=== PATIENT | male | born 1975 | race Caucasian/White ===

== ENCOUNTER 2018-03-30 10:51 | Emergency (ER) | payer OTHER ==
[2018-03-30] MEDS ORDERED: DEXAMETHASONE 10 MG/ML VIAL ONE (11:41)
[2018-03-30] MEDS ORDERED: DIAZEPAM 5 MG TABLET ONE (11:41)
[2018-03-30] MEDS ORDERED: FENTANYL CITR 100 MCG/2 ML ONE (11:42)
[2018-03-30] MEDS ORDERED: KETOROLAC 30 MG/ML INJ ONE (11:42)
[2018-03-30] MEDS ORDERED: ONDANSETRON 4 MG/2 ML VIAL ONE (11:42)
[2018-03-30 12:06] LABS: Absolute Lymphocytes (CBC) 1.4 K/uL (0.7-4.9); Absolute Monocytes 0.5 K/uL (0.1-1.3); Absolute Neutrophil 7.5 K/uL (1.8-8.0); Basophils % 0.9 % (0-1.3); Eosinophils % 2.4 % (0-4.4); Hematocrit 46.7 % (39.6-49.0); MCH 30.5 pg (27.0-35.0); MPV 7.4 fL (7.6-11.3); Monocytes % 5.3 % (3.3-12.3); RBC Red Blood Cell Count 5.08 M/uL (4.33-5.43)
[2018-03-30 12:15] LABS: Potassium 3.9 mEq/L (3.6-5.0)
[2018-03-30 12:18] LABS: Albumin 4.3 g/dL (3.2-5.5); Bilirubin Total 0.5 mg/dL (0.3-1.2); Protein, Total 7.7 g/dL (6.0-8.3)
--- NOTE | 2018-03-30 12:53 | RAD REPORT ---
EXAM DESCRIPTION: CT - Spine Lumbar Wo Con - 03/30/2018 12:27 pm CLINICAL HISTORY: Severe back pain, history of colon cancer COMPARISON: None. TECHNIQUE: Thin section axial imaging of the lumbar spine was performed. Sagittal and coronal recon struction images were generated and reviewed. All CT scans are performed using dose optimization technique as appropriate and may include automated exposure control or mA/KV adjustment according to patient size. FINDINGS: Lumbar bodies are normal in height and alignment. No compression fracture changes are pres ent. No lytic, sclerotic or expansile bony destructive process. No paraspinal soft tissue mass or hem atoma. Calcification is present within the T11-12 disc space. This is not seen as an acute or pathologic pro cess. Calcifications of the posterior ligaments noted. Canal is borderline stenotic at 10 mm. Central canal detail is inherently limited. L4-5 disc space narrowing present with endplate spurring and disc bulge within the central canal. Thecal sac is flattened but central canal is not stenotic. N o significant foraminal encroachment. No sacral ala fracture. SI joint degenerative changes are present but without an acute component. IMPRESSION: No compression fracture. No acute or destructive vertebral body process. L4-5 degenerative disc disease with midline disc bulge. This does not cause central spinal stenosis o r significant foraminal encroachment. Central canal detail is inherently limited.
[2018-03-30] MEDS ORDERED: HYDROCODONE/APAP 10/325 TAB ONE (12:58)
--- NOTE | 2018-03-30 13:06 | ER ---
Nurse's Notes [facility] Name: Derick Hough Age: 42 yrs Sex: Male : 1975 Arrival Date: 03/30/2018 Time: 10:55 Bed 26 Private MD: None, None Diagnosis: Low back pain;Sciatica Presentation: 03/30 11:02 Presenting complaint: Patient states: Low back pain 08/11 after doing yard work ss yesterday. Transition of care: patient was not received from another setting of care. Onset of symptoms was March 29, 2018. Care prior to arrival: None. 11:02 Method Of Arrival: Ambulatory ss 11:02 Acuity: BOLA 4 ss 14:38 Risk Assessment: Do you want to hurt yourself or someone else? Patient reports no aj1 desire to harm self or others. Initial Sepsis Screen: Does the patient meet any 2 criteria? No. Patient's initial sepsis screen is negative. Does the patient have a suspected source of infection? No. Patient's initial sepsis screen is negative. Historical: - Allergies: 11:06 No Known Allergies; ss - Home Meds: 11:06 allopurinol 300 mg Oral tab 1 tab once daily [Active]; aspirin 81 mg Oral TbEC 1 tab ss once daily [Active]; Protonix Oral once daily [Active]; tumeric [Active]; - PMHx: 11:06 colon cancer; GERD; Gout; ss - PSHx: 11:06 colon resection; hip; ss - Immunization history:: Adult Immunizations up to date. - Social history:: Smoking status: Patient/guardian denies using tobacco. - Ebola Screening: : No symptoms or risks identified at this time. - Family history:: not pertinent. Screenin:10 Abuse screen: Denies threats or abuse. Denies injuries from another. Nutritional aj1 screening: No deficits noted. Tuberculosis screening: No symptoms or risk factors identified. 14:38 Fall Risk None identified. aj1 Assessment: 11:10 General: Appears in no apparent distress. uncomfortable, Behavior is calm, cooperative, aj1 appropriate for age. Pain: Complains of pain in low back area Pain does not radiate. Pain currently is 10 out of 10 on a pain scale. Neuro: Level of Consciousness is awake, alert, obeys commands, Oriented to person, place, time, situation, Speech is normal, Facial symmetry appears normal. Cardiovascular: Patient's skin is warm and dry. Respiratory: Airway is patent Respiratory effort is even, unlabored, Respiratory pattern is regular, symmetrical. GI: No signs and/or symptoms were reported involving the gastrointestinal system. : No signs and/or symptoms were reported regarding the genitourinary system. EENT: No signs and/or symptoms were reported regarding the EENT system. Derm: No signs and/or symptoms reported regarding the dermatologic system. Skin is pink, warm \T\ dry. normal. Musculoskeletal: Range of motion: intact in all extremities, Reports pain in low back area. 12:03 Reassessment: Patient appears in no apparent distress at this time. No changes from aj1 previously documented assessment. Patient and/or family updated on plan of care and expected duration. Pain level reassessed. Patient is alert, oriented x 3, equal unlabored respirations, skin warm/dry/pink. Patient states that his pain has diminished some, but he is feeling dizzy since administration of Fentanyl. Patient given cool rag for comfort, side rails up x2, call light within reach. Instructed to notify staff if needing to get out of bed. Should not get out of bed without assistance. Patient verbalized understanding. 13:05 Reassessment: Patient appears in no apparent distress at this time. No changes from aj1 previously documented assessment. Patient and/or family updated on plan of care and expected duration. Pain level reassessed. Patient is alert, oriented x 3, equal unlabored respirations, skin warm/dry/pink. 14:05 Reassessment: Patient appears in no apparent distress at this time. Patient and/or aj1 family updated on plan of care and expected duration. Pain level reassessed. Patient is alert, oriented x 3, equal unlabored respirations, skin warm/dry/pink. Patient states feeling better. Patient states symptoms have improved. Vital Signs: 11:05 BP 137 / 96; Pulse 90; Resp 18; Temp 98; Pulse Ox 98% on R/A; Weight 120.2 kg; Height 6 ss ft. 3 in. (190.50 cm); Pain 10/10; 12:02 BP 136 / 85; Pulse 68; Resp 18; Pulse Ox 95% on R/A; aj1 14:37 BP 136 / 89; Pulse 68; Resp 18; Pulse Ox 96% on R/A; aj1 11:05 Body Mass Index 33.12 (120.20 kg, 190.50 cm) ED Course: 10:55 Patient arrived in ED. sb2 10:55 None, None is Private Physician. sb2 11:05 Triage completed. ss 11:06 Arm band placed on right wrist. ss 11:10 Renea Barger, RN is Primary Nurse. aj1 11:10 Patient has correct armband on for positive identification. Bed in low position. Call aj1 light in reach. Side rails up X 1. 11:10 No provider procedures requiring assistance completed. aj1 11:17 Loyd Shannon MD is Attending Physician. anson 11:56 Initial lab(s) drawn, by wv, sent to lab. Inserted saline lock: 20 gauge in right aj1 antecubital area, using aseptic technique. Blood collected. 12:[address] via wheelchair. sw 12:23 CT completed. Patient tolerated procedure well. Patient moved back from CT. sw 12:27 CT Lumbar Spine Wo Con In Process Unspecified. EDMS 13:05 Abimael Blanco MD is Referral Physician. anson 14:37 IV discontinued, intact, bleeding controlled, No redness/swelling at site. Pressure aj1 dressing applied. Administered Medications: 12:01 Drug: Decadron - Dexamethasone 10 mg Route: IVP; Site: right antecubital; aj1 14:39 Follow up: Response: No adverse reaction aj1 12:02 Drug: TORadol 30 mg Route: IVP; Site: right antecubital; aj1 14:38 Follow up: Response: No adverse reaction aj1 12:02 Drug: Valium 5 mg Route: PO; aj1 14:38 Follow up: Response: No adverse reaction aj1 12:02 Drug: fentaNYL (PF) 50 mcg Route: IVP; Site: right antecubital; aj1 14:39 Follow up: Response: No adverse reaction aj1 12:02 Drug: Zofran 4 mg Route: IVP; Site: right antecubital; aj1 14:39 Follow up: Response: No adverse reaction aj1 13:07 Drug: [place] 10 mg-325 mg 1 tabs Route: PO; aj1 14:39 Follow up: Response: No adverse reaction; Pain is decreased aj1 Outcome: 13:06 Discharge ordered by . anson 14:37 Discharged to home via wheelchair. aj1 14:37 Condition: good 14:37 Discharge instructions given to patient, family, Instructed on discharge instructions, follow up and referral plans. no drinking with medication, no driving heavy equipment, medication usage, Demonstrated understanding of instructions, follow-up care, medications, Prescriptions given X 4. 14:39 Patient left the ED. aj1 Signatures: Dispatcher [employer] EDRenea Cardona RN RN aj1 Loyd Shannon MD MD cha Smirch, Shelby, RN RN ss Warren, Shannon sw Billeau, Sheri sb2
--- NOTE | 2018-03-30 13:06 | EDPHYS ---
Physician Documentation [facility] Name: Derick Hough Age: 42 yrs Sex: Male : 1975 Arrival Date: 03/30/2018 Time: 10:55 Bed 26 Private MD: None, None ED Physician Loyd Shannon HPI: 03/30 11:36 This 42 yrs old Male presents to ER via Ambulatory with complaints of Back anson Pain. 11:36 The patient presents with pain that is acute, with no known mechanism of injury. The anson symptoms are located in the low back. Onset: The symptoms/episode began/occurred yesterday. The pain does not radiate. Associated signs and symptoms: The patient has no apparent associated signs or symptoms. The problem was sustained from a chronic condition, when lifting. Modifying factors: The patient symptoms are alleviated by remaining still, the patient symptoms are aggravated by any movement, bending. Severity of symptoms: At their worst the symptoms were moderate, earlier today. Historical: - Allergies: 11:06 No Known Allergies; ss - Home Meds: 11:06 allopurinol 300 mg Oral tab 1 tab once daily [Active]; aspirin 81 mg Oral TbEC 1 tab ss once daily [Active]; Protonix Oral once daily [Active]; tumeric [Active]; - PMHx: 11:06 colon cancer; GERD; Gout; ss - PSHx: 11:06 colon resection; hip; ss - Immunization history:: Adult Immunizations up to date. - Social history:: Smoking status: Patient/guardian denies using tobacco. - Ebola Screening: : No symptoms or risks identified at this time. - Family history:: not pertinent. ROS: 11:36 Constitutional: Negative for fever, chills, and weight loss, Eyes: Negative for injury, anson pain, redness, and discharge, ENT: Negative for injury, pain, and discharge, Neck: Negative for injury, pain, and swelling, Cardiovascular: Negative for chest pain, palpitations, and edema, Respiratory: Negative for shortness of breath, cough, wheezing, and pleuritic chest pain, Abdomen/GI: Negative for abdominal pain, nausea, vomiting, diarrhea, and constipation, : Negative for injury, bleeding, discharge, and swelling, MS/Extremity: Negative for injury and deformity, Skin: Negative for injury, rash, and discoloration, Neuro: Negative for headache, weakness, numbness, tingling, and seizure, Psych: Negative for depression, anxiety, suicide ideation, homicidal ideation, and hallucinations, Allergy/Immunology: Negative for hives, rash, and allergies, Endocrine: Negative for neck swelling, polydipsia, polyuria, polyphagia, and marked weight changes, Hematologic/Lymphatic: Negative for swollen nodes, abnormal bleeding, and unusual bruising. 11:36 Back: Positive for decreased range of motion, pain at rest, pain with movement, of the lumbar area. Exam: 11:36 Constitutional: This is a well developed, well nourished patient who is awake, alert, anson and in no acute distress. Head/Face: Normocephalic, atraumatic. Eyes: Pupils equal round and reactive to light, extra-ocular motions intact. Lids and lashes normal. Conjunctiva and sclera are non-icteric and not injected. Cornea within normal limits. Periorbital areas with no swelling, redness, or edema. ENT: Nares patent. No nasal discharge, no septal abnormalities noted. Tympanic membranes are normal and external auditory canals are clear. Oropharynx with no redness, swelling, or masses, exudates, or evidence of obstruction, uvula midline. Mucous membranes moist. Neck: Trachea midline, no thyromegaly or masses palpated, and no cervical lymphadenopathy. Supple, full range of motion without nuchal rigidity, or vertebral point tenderness. No Meningismus. Chest/axilla: Normal chest wall appearance and motion. Nontender with no deformity. No lesions are appreciated. Cardiovascular: Regular rate and rhythm with a normal S1 and S2. No gallops, murmurs, or rubs. Normal PMI, no JVD. No pulse deficits. Respiratory: Lungs have equal breath sounds bilaterally, clear to auscultation and percussion. No rales, rhonchi or wheezes noted. No increased work of breathing, no retractions or nasal flaring. Abdomen/GI: Soft, non-tender, with normal bowel sounds. No distension or tympany. No guarding or rebound. No evidence of tenderness throughout. Male : Normal genitalia with no discharge or lesions. Skin: Warm, dry with normal turgor. Normal color with no rashes, no lesions, and no evidence of cellulitis. MS/ Extremity: Pulses equal, no cyanosis. Neurovascular intact. Full, normal range of motion. Neuro: Awake and alert, GCS 15, oriented to person, place, time, and situation. Cranial nerves II-XII grossly intact. Motor strength 5/5 in all extremities. Sensory grossly intact. Cerebellar exam normal. Normal gait. Psych: Awake, alert, with orientation to person, place and time. Behavior, mood, and affect are within normal limits. 11:36 Back: pain, that is moderate, ROM is painful, kyphosis, CVA tenderness, is absent, muscle spasm, is appreciated in the left low back and right low back. Vital Signs: 11:05 BP 137 / 96; Pulse 90; Resp 18; Temp 98; Pulse Ox 98% on R/A; Weight 120.2 kg; Height 6 ss ft. 3 in. (190.50 cm); Pain 10/10; 12:02 BP 136 / 85; Pulse 68; Resp 18; Pulse Ox 95% on R/A; aj1 14:37 BP 136 / 89; Pulse 68; Resp 18; Pulse Ox 96% on R/A; aj1 11:05 Body Mass Index 33.12 (120.20 kg, 190.50 cm) ss MDM: 11:17 Patient medically screened. [facility] 12:45 Data reviewed: vital signs, nurses notes, lab test result(s), radiologic studies, [facility] doppler. 03/30 11:36 Order name: CBC with Diff; Complete Time: 12:44 [facility] 03/30 11:36 Order name: Comprehensive Metabolic Panel; Complete Time: 12:44 [facility] 03/30 11:36 Order name: CT Lumbar Spine Wo Con; Complete Time: 13:05 [facility] Administered Medications: 12:01 Drug: Decadron - Dexamethasone 10 mg Route: IVP; Site: right antecubital; aj1 14:39 Follow up: Response: No adverse reaction aj1 12:02 Drug: TORadol 30 mg Route: IVP; Site: right antecubital; aj1 14:38 Follow up: Response: No adverse reaction aj1 12:02 Drug: Valium 5 mg Route: PO; aj1 14:38 Follow up: Response: No adverse reaction aj1 12:02 Drug: fentaNYL (PF) 50 mcg Route: IVP; Site: right antecubital; aj1 14:39 Follow up: Response: No adverse reaction aj1 12:02 Drug: Zofran 4 mg Route: IVP; Site: right antecubital; aj1 14:39 Follow up: Response: No adverse reaction aj1 13:07 Drug: [place] 10 mg-325 mg 1 tabs Route: PO; aj1 14:39 Follow up: Response: No adverse reaction; Pain is decreased aj1 Disposition: 03/30/18 13:06 Discharged to Home. Impression: Low back pain, Sciatica. - Condition is Fair. - Discharge Instructions: Back Pain, Adult, Chronic Back Pain, Musculoskeletal Pain, Back Injury Prevention, [id number], Back Pain, Adult, [id number]. - Prescriptions for Ibuprofen 600 mg Oral Tablet - take 1 tablet by ORAL route every 6 hours As needed take with food; 30 tablet. Skelaxin 800 mg Oral Tablet - take 1 tablet by ORAL route every 6 hours As needed; 40 tablet. Tylenol- Codeine #3 300-30 mg Oral Tablet - take 2 tablet by ORAL route every 6 hours As needed; 30 tablet. Medrol (Christian) 4 mg Oral Tablets, Dose Pack - take 1 tablet by ORAL route as directed - follow package instructions; 1 packet. - Medication Reconciliation Form, Thank You Letter, Antibiotic Education, Prescription Opioid Use form. - Follow up: Private Physician; When: 2 - 3 days; Reason: Recheck today's complaints, Continuance of care, Re-evaluation by your physician. Follow up: Abimael Blanco MD; When: 2 - 3 days; Reason: Recheck today's complaints, Re-evaluation by your physician. - Problem is new. - Symptoms have improved. Signatures: Dispatcher [employer] Renea Cardona RN RN aj1 Loyd Shannon MD MD cha Smirch, Shelby, RN RN ss Corrections: (The following items were deleted from the chart) 14:39 13:06 03/30/2018 13:06 Discharged to Home. Impression: Low back pain; Sciatica. aj1 Condition is Fair. Discharge Instructions: Back Pain, Adult, Chronic Back Pain, Musculoskeletal Pain, Back Injury Prevention, [id number], Back Pain, Adult, [id number]. Prescriptions for Ibuprofen 600 mg Oral Tablet - take 1 tablet by ORAL route every 6 hours As needed take with food; 30 tablet, Skelaxin 800 mg Oral Tablet - take 1 tablet by ORAL route every 6 hours As needed; 40 tablet, Tylenol-Codeine #3 300-30 mg Oral Tablet - take 2 tablet by ORAL route every 6 hours As needed; 30 tablet, Medrol (Christian) 4 mg Oral Tablets, Dose Pack - take 1 tablet by ORAL route as directed - follow package instructions; 1 packet. and Forms are Medication Reconciliation Form, Thank You Letter, Antibiotic Education, Prescription Opioid Use. Follow up: Private Physician; When: 2 - 3 days; Reason: Recheck today's complaints, Continuance of care, Re-evaluation by your physician. Follow up: Abimael Blanco; When: 2 - 3 days; Reason: Recheck today's complaints, Re-evaluation by your physician. Problem is new. Symptoms have improved. anson
[2018-03-30 14:43] VITALS: TEMP 98
[2018-03-30 14:45] VITALS: BP 136/89; O2SAT 96
== END 2018-03-30 14:39 | disposition home or self-care (01) ==
LOC: ER 10:51
DX: M54.30 Sciatica, unspecified side (principal); K21.9 Gastro-esophageal reflux disease without esophagitis; Z79.82 Long term (current) use of aspirin; Z85.038 Personal history of other malignant neoplasm of large intestine
CPT/HCPCS: 36415; 72131; 80053; 85025; 96374; 96375; 99284; J1100; J2405; J3010

== ENCOUNTER 2018-06-22 20:58 | Observation (INO) | payer OTHER ==
[2018-06-22 21:33] LABS: Urine Blood 2+ (NEG); Urine Glucose NEGATIVE (NEG); Urine Protein 1+ (NEG); Urine Specific Gravity >1.030 (1.005-1.030); Urine pH 5.5 (5.0-7.0)
--- NOTE | 2018-06-22 22:06 | ER ---
Nurse's Notes [facility] Name: Derick Hough Age: 42 yrs Sex: Male : 1975 Arrival Date: 06/22/2018 Time: 21:02 Bed 18 Private MD: Diagnosis: Cystitis;Urinary tract infection, site not specified;Acute prostatitis;Fever, unspecified;Weakness;Anorexia Presentation: 06/22 21:21 Presenting complaint: Patient states: "I feel like I need to pee but I cant, I have no bs1 energy, been running a fever, and I have a loss of appetitie". Transition of care: patient was not received from another setting of care. Onset of symptoms was June 22, 2018. Risk Assessment: Do you want to hurt yourself or someone else? Patient reports no desire to harm self or others. Initial Sepsis Screen: Does the patient meet any 2 criteria? Temp <36.0*C (96.8*F)) or > 38.3*C (100.4*F). HR > 90 bpm. Does the patient have a suspected source of infection? No. Patient's initial sepsis screen is negative. If YES to both, name of provider notified: Loyd Shannon MD. Care prior to arrival: None. 21:21 Method Of Arrival: Ambulatory bs1 21:21 Acuity: BOLA 3 bs1 Historical: - Allergies: 21:24 No Known Allergies; bs1 - Home Meds: 21:24 allopurinol 300 mg Oral tab 1 tab once daily [Active]; aspirin 81 mg Oral TbEC 1 tab bs1 once daily [Active]; Protonix Oral once daily [Active]; tumeric [Active]; - PMHx: 21:24 colon cancer; GERD; Gout; bs1 - PSHx: 21:24 part of colon removed; bs1 - Immunization history:: Adult Immunizations up to date. - Social history:: Smoking status: Patient/guardian denies using tobacco. - Ebola Screening: : Patient negative for fever greater than or equal to 101.5 degrees Fahrenheit, and additional compatible Ebola Virus Disease symptoms Patient denies exposure to infectious person. - Family history:: not pertinent. Screenin:27 Abuse screen: Denies threats or abuse. Denies injuries from another. Nutritional bs1 screening: No deficits noted. Tuberculosis screening: No symptoms or risk factors identified. Fall Risk None identified. Assessment: 21:37 General: Appears in no apparent distress. uncomfortable, well groomed, Behavior is bs1 calm, cooperative, appropriate for age, Reports fever for 12-24 hours, feeling ill for 12-24 hours. Pain: Denies pain. Neuro: Level of Consciousness is awake, alert, obeys commands, Oriented to person, place, time, situation, Appropriate for age [employer] are equal bilaterally Reports feeling fatigued, no energy. Cardiovascular: Denies chest pain, shortness of breath, Heart tones S1 S2 present Capillary refill < 3 seconds Patient's skin is warm and dry. Respiratory: Airway is patent Trachea midline Respiratory effort is even, unlabored, Respiratory pattern is regular, symmetrical, Breath sounds are clear bilaterally. GI: Bowel sounds present X 4 quads. Reports poor appetite. : Reports inability to void, urgency. EENT: No signs and/or symptoms were reported regarding the EENT system. Derm: Skin is intact. Musculoskeletal: Circulation, motion, and sensation intact. Capillary refill < 3 seconds, Range of motion: intact in all extremities. 22:45 Reassessment: Patient appears in no apparent distress at this time. Patient and/or bs1 family updated on plan of care and expected duration. Pain level reassessed. Patient is alert, oriented x 3, equal unlabored respirations, skin warm/dry/pink. Patient informed of pending lab work/POC. 23:30 Reassessment: Patient appears in no apparent distress at this time. Patient and/or bs1 family updated on plan of care and expected duration. Pain level reassessed. Patient is alert, oriented x 3, equal unlabored respirations, skin warm/dry/pink. Patient to be admitted to 4th floor. No further needs at this time. 06/23 00:00 Reassessment: Patient requested to stay in own clothes. bs1 Vital Signs: 06/22 21:20 BP 130 / 72; Pulse 110; Resp 18; Temp 101.8; Pulse Ox 97% on R/A; Weight 113.4 kg; bs1 Height 6 ft. 3 in. (190.50 cm); Pain 0/10; 22:20 BP 123 / 74; Pulse 105; Resp 17 S; Pulse Ox 96% on R/A; bs1 23:08 Temp 101.1(O); bs1 23:20 BP 105 / 58; Pulse 95; Resp 16 S; Temp 101.1; Pulse Ox 97% on R/A; bs1 21:20 Body Mass Index 31.25 (113.40 kg, 190.50 cm) bs1 ED Course: 21:02 Patient arrived in ED. es 21:06 Tamara Mcmahon, RN is Primary Nurse. bs1 21:08 Loyd Shannon MD is Attending Physician. anson 21:23 Triage completed. bs1 21:27 Patient has correct armband on for positive identification. Bed in low position. Call bs1 light in reach. Side rails up X 1. Pulse ox on. NIBP on. 21:[address] sj 21:45 CT completed. Patient tolerated procedure well. Patient moved back from CT. nj 21:45 Arm band placed on left wrist. bs1 21:46 CT Stone Protocol In Process Unspecified. EDMS 22:00 Inserted saline lock: 20 gauge in left antecubital area, using aseptic technique. Blood bs1 collected. 22:05 Mike Silvestre MD is Hospitalizing Provider. [facility] 06/23 00:06 No provider procedures requiring assistance completed. Patient admitted, IV remains in bs1 place. intact. Administered Medications: 06/22 22:20 Drug: Rocephin - (cefTRIAXone) 2 grams Route: IVPB; Infused Over: 30 mins; Site: right bs1 antecubital; 23:31 Follow up: IV Status: Completed infusion bs1 22:20 Drug: Tylenol 650 mg Route: PO; bs1 23:31 Follow up: Response: No adverse reaction bs1 22:33 Drug: NS 0.9% 1000 ml Route: IV; Rate: 1 bolus; Site: left antecubital; bs1 23:06 Drug: levofloxacin 750 mg Volume: 150 ml; Route: IVPB; Infused Over: 90 mins; Site: bs1 left antecubital; 06/23 00:12 Follow up: IV Status: Infusion continued upon admission bs1 06/22 23:07 Drug: NS 0.9% 1000 ml Route: IV; Rate: 1 bolus; Site: left antecubital; bs1 06/23 00:12 Follow up: IV Status: Completed infusion bs1 Outcome: 06/22 22:06 Decision to Hospitalize by Provider. anson 06/23 00:07 Admitted to Tele accompanied by tech, via stretcher, room 408, with chart, Report bs1 called to BRITTNEY Kelley Condition: stable Instructed on the need for admit, Demonstrated understanding of instructions. 00:08 Patient left the ED. bs1 Signatures: Dispatcher [employer] Loyd Shah MD MD cha Salyer, Nataly Julien, Kristal Adame, Tamara Robles RN RN bs1 Corrections: (The following items were deleted from the chart) 06/22 21:23 21:21 Presenting complaint: Patient states: "I feel like I need to pee but I cant, I bs1 have no energy, been running a fever." bs1 21:27 21:21 Initial Sepsis Screen: Does the patient meet any 2 criteria? Temp <36.0*C bs1 (96.8*F)) or > 38.3*C (100.4*F). Does the patient have a suspected source of infection? No. Patient's initial sepsis screen is negative. bs1 21:28 21:21 Initial Sepsis Screen: Does the patient meet any 2 criteria? Temp <36.0*C bs1 (96.8*F)) or > 38.3*C (100.4*F). HR > 90 bpm. Does the patient have a suspected source of infection? No. Patient's initial sepsis screen is negative. bs1
--- NOTE | 2018-06-22 22:06 | EDPHYS ---
Physician Documentation [facility] Name: Derick Hough Age: 42 yrs Sex: Male : 1975 Arrival Date: 06/22/2018 Time: 21:02 Bed 18 Private MD: ED Physician Loyd Shannon HPI: 06/22 21:25 This 42 yrs old Male presents to ER via Ambulatory with complaints of Urinary anson Retention, Fever, Decreased Appetite. 21:25 The patient reports fever, that was measured at 102 degrees Fahrenheit. Onset: The anson symptoms/episode began/occurred 2 day(s) ago. Modifying factors: there are no obvious modifying factors. Associated signs and symptoms: Pertinent positives: abdominal pain, chills. Severity of symptoms: At their worst the symptoms were mild moderate in the emergency department the symptoms are unchanged. The patient has not experienced similar symptoms in the past. Historical: - Allergies: 21:24 No Known Allergies; bs1 - Home Meds: 21:24 allopurinol 300 mg Oral tab 1 tab once daily [Active]; aspirin 81 mg Oral TbEC 1 tab bs1 once daily [Active]; Protonix Oral once daily [Active]; tumeric [Active]; - PMHx: 21:24 colon cancer; GERD; Gout; bs1 - PSHx: 21:24 part of colon removed; bs1 - Immunization history:: Adult Immunizations up to date. - Social history:: Smoking status: Patient/guardian denies using tobacco. - Ebola Screening: : Patient negative for fever greater than or equal to 101.5 degrees Fahrenheit, and additional compatible Ebola Virus Disease symptoms Patient denies exposure to infectious person. - Family history:: not pertinent. ROS: 21:26 Constitutional: Negative for fever, chills, and weight loss, Eyes: Negative for injury, anson pain, redness, and discharge, ENT: Negative for injury, pain, and discharge, Neck: Negative for injury, pain, and swelling, Cardiovascular: Negative for chest pain, palpitations, and edema, Respiratory: Negative for shortness of breath, cough, wheezing, and pleuritic chest pain, Abdomen/GI: Negative for abdominal pain, nausea, vomiting, diarrhea, and constipation, Back: Negative for injury and pain, MS/Extremity: Negative for injury and deformity, Skin: Negative for injury, rash, and discoloration, Neuro: Negative for headache, weakness, numbness, tingling, and seizure, Psych: Negative for depression, anxiety, suicide ideation, homicidal ideation, and hallucinations, Allergy/Immunology: Negative for hives, rash, and allergies, Endocrine: Negative for neck swelling, polydipsia, polyuria, polyphagia, and marked weight changes, Hematologic/Lymphatic: Negative for swollen nodes, abnormal bleeding, and unusual bruising. 21:26 : Positive for urinary symptoms, urinary frequency, small amounts, burning with urination, difficulty urinating, of the suprapubic area. Exam: 21:26 Head/Face: Normocephalic, atraumatic. Eyes: Pupils equal round and reactive to light, anson extra-ocular motions intact. Lids and lashes normal. Conjunctiva and sclera are non-icteric and not injected. Cornea within normal limits. Periorbital areas with no swelling, redness, or edema. ENT: Nares patent. No nasal discharge, no septal abnormalities noted. Tympanic membranes are normal and external auditory canals are clear. Oropharynx with no redness, swelling, or masses, exudates, or evidence of obstruction, uvula midline. Mucous membranes moist. Neck: Trachea midline, no thyromegaly or masses palpated, and no cervical lymphadenopathy. Supple, full range of motion without nuchal rigidity, or vertebral point tenderness. No Meningismus. Chest/axilla: Normal chest wall appearance and motion. Nontender with no deformity. No lesions are appreciated. Respiratory: Lungs have equal breath sounds bilaterally, clear to auscultation and percussion. No rales, rhonchi or wheezes noted. No increased work of breathing, no retractions or nasal flaring. Back: No spinal tenderness. No costovertebral tenderness. Full range of motion. Skin: Warm, dry with normal turgor. Normal color with no rashes, no lesions, and no evidence of cellulitis. MS/ Extremity: Pulses equal, no cyanosis. Neurovascular intact. Full, normal range of motion. Neuro: Awake and alert, GCS 15, oriented to person, place, time, and situation. Cranial nerves II-XII grossly intact. Motor strength 5/5 in all extremities. Sensory grossly intact. Cerebellar exam normal. Normal gait. Psych: Awake, alert, with orientation to person, place and time. Behavior, mood, and affect are within normal limits. 21:26 Cardiovascular: Rate: tachycardic, Rhythm: regular, Pulses: Pulses are 4+ in bilateral radial, brachial, femoral, popliteal, posterior tibial and and dorsalis pedis arteries.. Heart sounds: normal, Edema: is not appreciated, JVD: is not appreciated. Vital Signs: 21:20 BP 130 / 72; Pulse 110; Resp 18; Temp 101.8; Pulse Ox 97% on R/A; Weight 113.4 kg; bs1 Height 6 ft. 3 in. (190.50 cm); Pain 0/10; 22:20 BP 123 / 74; Pulse 105; Resp 17 S; Pulse Ox 96% on R/A; bs1 23:08 Temp 101.1(O); bs1 23:20 BP 105 / 58; Pulse 95; Resp 16 S; Temp 101.1; Pulse Ox 97% on R/A; bs1 21:20 Body Mass Index 31.25 (113.40 kg, 190.50 cm) bs1 MDM: 21:08 Patient medically screened. [facility] 21:28 Data reviewed: vital signs, nurses notes, lab test result(s), radiologic studies, plain anson films. 06/22 21:21 Order name: Urine Dipstick--Ancillary (enter results); Complete Time: 22:04 md 06/22 21:21 Order name: Urine Culture md 06/22 21:25 Order name: Amylase, Serum [facility] 06/22 21:25 Order name: Basic Metabolic Panel [facility] 06/22 21:25 Order name: CBC with Diff [facility] 06/22 21:25 Order name: Creatinine for Radiology; Complete Time: 22:49 [facility] 06/22 21:25 Order name: Hepatic Function [facility] 06/22 21:25 Order name: Lipase [facility] 06/22 21:25 Order name: Urine Microscopic Only; Complete Time: 22:49 [facility] 06/22 21:25 Order name: Blood Culture Adult (2) [facility] 06/22 21:25 Order name: Lactate [facility] 06/22 21:25 Order name: Procalcitonin [facility] 06/22 21:26 Order name: Amylase Level; Complete Time: 22:49 EDMD 06/22 21:26 Order name: Basic Metabolic Panel; Complete Time: 22:49 EDMD 06/22 21:25 Order name: IV Saline Lock; Complete Time: 23:44 [facility] 06/22 21:25 Order name: Labs collected and sent; Complete Time: 23:44 [facility] 06/22 21:25 Order name: Urine Dipstick-Ancillary (obtain specimen); Complete Time: 22:34 [facility] 06/22 21:25 Order name: CT Stone Protocol; Complete Time: 22:20 [facility] 06/22 21:26 Order name: CBC with Automated Diff EDMD 06/22 21:26 Order name: Liver (Hepatic) Function; Complete Time: 22:49 [facility] 06/22 21:26 Order name: Lipase; Complete Time: 22:49 [facility] 06/22 22:12 Order name: CONS Physician Consult EDMD 06/22 23:35 Order name: CBC Smear Scan EDMD Administered Medications: 22:20 Drug: Rocephin - (cefTRIAXone) 2 grams Route: IVPB; Infused Over: 30 mins; Site: right bs1 antecubital; 23:31 Follow up: IV Status: Completed infusion bs1 22:20 Drug: Tylenol 650 mg Route: PO; [facility] 23:31 Follow up: Response: No adverse reaction bs1 22:33 Drug: NS 0.9% 1000 ml Route: IV; Rate: 1 bolus; Site: left antecubital; bs1 23:06 Drug: levofloxacin 750 mg Volume: 150 ml; Route: IVPB; Infused Over: 90 mins; Site: bs1 left antecubital; 06/23 00:12 Follow up: IV Status: Infusion continued upon admission bs1 06/22 23:07 Drug: NS 0.9% 1000 ml Route: IV; Rate: 1 bolus; Site: left antecubital; 1 06/23 00:12 Follow up: IV Status: Completed infusion bs1 Disposition: 06/22/18 22:06 Hospitalization ordered by Mike Silvestre for Inpatient Admission. Preliminary diagnosis are Cystitis, Urinary tract infection, site not specified, Acute prostatitis, Fever, unspecified, Weakness, Anorexia. - Bed requested for Telemetry/MedSurg (Inpatient). - Status is Inpatient Admission. bs1 - Condition is Fair. - Problem is new. - Symptoms have improved. UTI on Admission? Yes Signatures: Dispatcher [employer] EDMD Loyd Shannon MD MD cha Garcia, Cindy, RN RN Tamara Mcmahon RN RN bs1 Corrections: (The following items were deleted from the chart) 06/22 22:38 22:06 Hospitalization Ordered by Mike Silvestre MD for Inpatient Admission. Preliminary cg diagnosis is Cystitis; Urinary tract infection, site not specified; Acute prostatitis; Fever, unspecified; Weakness; Anorexia. Bed requested for Telemetry/MedSurg (Inpatient). Status is Inpatient Admission. Condition is Fair. Problem is new. Symptoms have improved. UTI on Admission? Yes. [facility] 06/23 00:08 06/22 22:38 06/22/2018 22:06 Hospitalization Ordered by Mike Silvestre MD for Inpatient bs1 Admission. Preliminary diagnosis is Cystitis; Urinary tract infection, site not specified; Acute prostatitis; Fever, unspecified; Weakness; Anorexia. Bed requested for Telemetry/MedSurg (Inpatient). Status is Inpatient Admission. Condition is Fair. Problem is new. Symptoms have improved. UTI on Admission? Yes. cg
--- NOTE | 2018-06-22 22:16 | RAD REPORT ---
EXAM DESCRIPTION: CT - Stone Protocol - 06/22/2018 9:45 pm CLINICAL HISTORY: Fever, loss of appetite, dysuria, history of colon cancer COMPARISON: None. TECHNIQUE: Axial 5 mm thick images were obtained without oral or IV contrast. The [id number]-[id number] span s the entirety of the system partially obscuring uppermost abdomen and lung bases. All CT scans are performed using dose optimization technique as appropriate and may include automated exposure control or mA/KV adjustment according to patient size. FINDINGS: No hydronephrosis is present and no obstructing ureteral calculi. No suspicious renal mass es. Isodense masses and pyelonephritis are not excluded on a stone protocol CT scan. Urinary bladder is fully contracted. No bladder calculi seen. Prostate gland and seminal vesicles are within range of normal. Imaged portions of the liver, spleen and pancreas show no suspicious findings on non-contrast imaging . Liver does demonstrate fatty infiltration. No gallbladder or biliary tree abnormality identified. N o significant adrenal finding. No suspicious bowel findings. No appendicitis. Transverse colon surgical site shows no acute finding. No hernia, mass or bulky lymphadenopathy noted. No free air, free fluid or inflammatory stranding. No significant bony abnormality. Disc and bony degenerative changes are present. Postsurgical changes are present in the proximal right femur. No acute bone process identified. IMPRESSION: Noncontrast CT abdomen and pelvis imaging shows no acute finding. Isodense masses and pyelonephritis are not excluded on stone protocol technique. Fatty infiltration of the liver.
[2018-06-22] MEDS ORDERED: ACETAMINOPHEN 325 MG TABLET ONE (22:19)
[2018-06-22] MEDS ORDERED: NA CHLORIDE 0.9% 2,000 ML ONE (22:19)
[2018-06-22] MEDS ORDERED: Levofloxacin 750mg IV 750 MG/150 ML BAG IV ONE (22:20)
[2018-06-22] MEDS ORDERED: CEFTRIAXONE/SWI 1gm 2 GM/20 ML SYR ONE (22:20)
[2018-06-22 22:22] LABS: Absolute Lymphocytes (CBC) 0.6 K/uL (0.7-4.9); Absolute Monocytes 0.9 K/uL (0.1-1.3); Absolute Neutrophil 14.3 K/uL (1.8-8.0); Basophils % 0.2 % (0-1.3); Eosinophils % 0.5 % (0-4.4); Hematocrit 41.4 % (39.6-49.0); Lymphocytes % 3.9 % (15.3-44.8); MCH 31.3 pg (27.0-35.0); MPV 7.7 fL (7.6-11.3); Monocytes % 5.7 % (3.3-12.3); RBC Red Blood Cell Count 4.51 M/uL (4.33-5.43)
[2018-06-22 22:38] LABS: Urine Bacteria 20-50 /HPF (NONE SEEN); Urine Culture Reflex Order NOT NEEDED; Urine Mucus 1+ /HPF (NONE SEEN)
[2018-06-22 22:45] LABS: Albumin 3.8 g/dL (3.4-5.0); Bilirubin Direct 0.3 mg/dL (0-0.2); Bilirubin Total 0.8 mg/dL (0.2-1.0); Potassium 3.5 mmol/L (3.5-5.1); Protein, Total 7.7 g/dL (6.4-8.2)
--- NOTE | 2018-06-22 23:05 | P.HP ---
Certification for Inpatient Patient admitted to: Inpatient With expected LOS: >2 Midnights Practitioner: I am a practitioner with admitting privileges, knowledge of patient current condition, hospital course, and medical plan of care. Services: Services provided to patient in accordance with Admission requirements found in Title 42 Section 412.3 of the Code of Federal Regulations Patient History Date of Service: 06/22/18 Reason for admission: UTI History of Present Illness: Mr Hough is a 42-year-old male with history of GERD, gout, colon cancer, will start on last night with painful urination and hesitancy. Report also chills and fever associated with sweating episodes. He has had lower back pain as well. He denied in the recent unprotected intercourse, no secretions, he has never had these symptoms before. In ER lab work revealed leukocytosis 15.9, procalcitonin is normal, lactate is still pending. CT scan abdomen and pelvis showed no acute abnormality but fatty liver. At presentation the patient was febrile 101.8F. Allergies No Known Allergies Allergy (Unverified 03/24/17 17:13) Home medications list reviewed: Yes - Past Medical/Surgical History -: GERD -: Gout -: Colon cancer -: Hemicolectomy - Family History Family History: Reviewed- Non-Contributory - Social History Smoking Status: Never smoker Alcohol use: Yes CD- Drugs: No Place of Residence: Home Review of Systems 10-point ROS is otherwise unremarkable Physical Examination - Physical Exam General: Alert, In no apparent distress HEENT: Atraumatic, PERRLA, Mucous membr. moist/pink, EOMI, Sclerae nonicteric Neck: Supple, 2+ carotid pulse no bruit, No LAD, Without JVD or thyroid abnormality Respiratory: Clear to auscultation bilaterally, Normal air movement Cardiovascular: Regular rate/rhythm, Normal S1 S2 Gastrointestinal: Normal bowel sounds, No tenderness Musculoskeletal: No tenderness Integumentary: No rashes Neurological: Normal gait, Normal speech, Normal strength at 5/5 x4 extr, Normal tone, Normal affect Lymphatics: No axilla or inguinal lymphadenopathy - Studies Laboratory Data (last 24 hrs) 06/22/18 22:00: Creatinine 1.10 06/22/18 22:00: WBC 15.9 H, Hgb 14.1, Hct 41.4, Plt Count 226 06/22/18 22:00: Sodium 139, Potassium 3.5, BUN 8, Creatinine 1.10, Glucose 118 H , Total Bilirubin 0.8, AST 66 H, ALT 92 H, Alkaline Phosphatase 68, Amylase 34, Lipase 221 Assessment and Plan - Problems (Diagnosis) (1) Sepsis Current Visit: Yes Status: Acute Qualifiers: Sepsis type: sepsis due to unspecified organism Qualified Code(s): A41.9 - Sepsis, unspecified organism (2) UTI (urinary tract infection) Current Visit: Yes Status: Acute Qualifiers: Urinary tract infection type: acute cystitis Hematuria presence: without hematuria Qualified Code(s): N30.00 - Acute cystitis without hematuria (3) GERD (gastroesophageal reflux disease) Current Visit: Yes Status: Acute (4) History of colon cancer, stage II Current Visit: Yes Status: Acute - Plan 1. Sepsis: He has leukocytosis, fever and tachycardia. UA is abnormal consistent with UTI, suspect possible prostatitis. Blood cultures and urine cultures are in process. Will continue empiric treatment with IV Levaquin. Urology is consulted. 2. History of colon cancer: He was diagnosed 4 years ago, stage II, he only have surgical resection. 3. GERD: Will continue with oral PPIs. - Advance Directives Does patient have a Living Will: No Does patient have a Durable POA for Healthcare: No
[2018-06-22 23:35] LABS: Blood Morphology Comment NOT SEEN (NOT SEEN); Platelet Estimate ADEQ; Urine White Blood Cell Casts OK
[2018-06-23] MEDS ORDERED: ONDANSETRON 4 MG/2 ML VIAL IV PRN (00:19)
[2018-06-23] MEDS ORDERED: ACETAMINOPHEN 500 MG TAB PO PRN (00:19)
[2018-06-23] MEDS: NA CHLORIDE 0.9% 1,000 ML IV SCH ×3 (00:55→20:22)
[2018-06-23 01:38] VITALS: BMI 33.3
[2018-06-23 06:42] LABS: BUN Blood Urea Nitrogen 6 mg/dL (7-18); Bicarbonate 26 mmol/L (21-32); Glucose Level 117 mg/dL (74-106); Potassium 3.5 mmol/L (3.5-5.1); Sodium Level 139 mmol/L (136-145)
[2018-06-23 06:57] LABS: Absolute Lymphocytes (CBC) 0.9 K/uL (0.7-4.9); Absolute Monocytes 1.1 K/uL (0.1-1.3); Absolute Neutrophil 13.9 K/uL (1.8-8.0); Basophils % 0.2 % (0-1.3); Eosinophils % 0.1 % (0-4.4); Hematocrit 36.7 % (39.6-49.0); Lymphocytes % 5.7 % (15.3-44.8); MCH 31.8 pg (27.0-35.0); MCV 92.6 fL (80-100); MPV 7.6 fL (7.6-11.3); Monocytes % 7.2 % (3.3-12.3); RBC Red Blood Cell Count 3.96 M/uL (4.33-5.43)
[2018-06-23] MEDS ORDERED: POTASSIUM 25 MEQ EFFERV TAB PO ONE (06:59)
[2018-06-23] MEDS: ENOXAPARIN 40 MG/0.4 ML SQ SCH (08:48)
[2018-06-23 09:48] VITALS: O2SAT 98
--- NOTE | 2018-06-23 10:27 | P.PN ---
Subjective Date of Service: 06/23/18 Primary Care Provider: none; Oncology-[facility] Chief Complaint: UTI Subjective: Improving (Patient doing much better. Less pain to urination.) Physical Examination - Vital Signs Temperature: 97.5 F Blood Pressure: 110/65 Pulse: 84 Respirations: 18 Pulse Ox (%): 98 - Physical Exam General: Alert, In no apparent distress, Oriented x3, Cooperative HEENT: Atraumatic Neck: Supple Respiratory: Clear to auscultation bilaterally, Normal air movement Cardiovascular: Normal pulses, Regular rate/rhythm Gastrointestinal: Normal bowel sounds, Soft and benign, Non-distended, No tenderness, No masses, No rebound, No guarding Musculoskeletal: No erythema, No tenderness, No warmth Integumentary: No tenderness/swelling, No erythema, No warmth, No cyanosis Neurological: Normal speech, Normal strength at 5/5 x4 extr, Normal tone, Normal affect - Studies Laboratory Data (last 24 hrs) 06/22/18 22:00: Creatinine 1.10 06/22/18 22:00: WBC 15.9 H, Hgb 14.1, Hct 41.4, Plt Count 226 06/22/18 22:00: Sodium 139, Potassium 3.5, BUN 8, Creatinine 1.10, Glucose 118 H , Total Bilirubin 0.8, AST 66 H, ALT 92 H, Alkaline Phosphatase 68, Amylase 34, Lipase 221 Medications List Reviewed: Yes Assessment & Plan - Problems (Diagnosis) (1) Prostatitis Current Visit: Yes Status: Acute Plan: Suspect prostatitis. Lactic acid and pro calcitonin within normal range. PSA elevated. Will continue with antibiotic therapy. Urine culture obtained. Will discuss case further with urology. Possible discharge later today if much improved. Patient will need close follow up with urology if discharge today. Qualifiers: Prostatitis type: acute Qualified Code(s): N41.0 - Acute prostatitis (2) Fatty liver Current Visit: Yes Status: Chronic Plan: Patient with fatty liver. This can be monitored and followed by GI as an outpatient. (3) Elevated liver function tests Current Visit: Yes Status: Acute Plan: Elevated liver function likely related to fatty liver. Will send for hepatitis panel. (4) GERD (gastroesophageal reflux disease) Onset Date: 06/23/18 Current Visit: Yes Status: Chronic Plan: Will continue with his medication Qualifiers: Esophagitis presence: esophagitis presence not specified Qualified Code(s) : K21.9 - Gastro-esophageal reflux disease without esophagitis (5) History of colon cancer, stage II Current Visit: Yes Status: Chronic Plan: Patient has had colectomy in the past. Patient being followed at [facility]. (6) UTI (urinary tract infection) Onset Date: 06/23/18 Current Visit: Yes Status: Acute Plan: Urine culture obtained. Continue IV antibiotic therapy. Await recommendations by urology. Possible discharge later today. Qualifiers: Urinary tract infection type: acute cystitis Hematuria presence: without hematuria Qualified Code(s): N30.00 - Acute cystitis without hematuria (7) Obesity Current Visit: Yes Status: Chronic Plan: Will address lifestyle modification education. Qualifiers: Obesity type: due to excess calories Obesity classification: adult class 1 (BMI 30 - 34.9) Serious obesity comorbidity presence: without serious comorbidity Body mass index: BMI 33.0-33.9 Qualified Code(s): E66.09 - Other obesity due to excess calories; Z68.33 - Body mass index (BMI) 33.0-33.9, adult (8) Elevated PSA Current Visit: Yes Status: Acute Plan: Likely from prostatitis. Continue as above. This will need to be recheck in about 1 month Discharge Plan: Home Plan to discharge in: 24 Hours Time Spent Managing Pts Care (In Minutes): 55
[2018-06-23] MEDS ORDERED: Levofloxacin 750mg IV 750 MG/150 ML BAG IV SCH (23:00)
[2018-06-24 06:16] LABS: Absolute Lymphocytes (CBC) 0.8 K/uL (0.7-4.9); Absolute Monocytes 0.6 K/uL (0.1-1.3); Absolute Neutrophil 7.5 K/uL (1.8-8.0); Basophils % 0.5 % (0-1.3); Eosinophils % 1.2 % (0-4.4); Hematocrit 39.7 % (39.6-49.0); Lymphocytes % 8.4 % (15.3-44.8); MCH 31.5 pg (27.0-35.0); MCV 92.9 fL (80-100); MPV 7.7 fL (7.6-11.3); Monocytes % 6.4 % (3.3-12.3); RBC Red Blood Cell Count 4.27 M/uL (4.33-5.43)
[2018-06-24] MEDS: NA CHLORIDE 0.9% 1,000 ML IV SCH (06:16)
[2018-06-24 06:36] LABS: Magnesium 1.9 mg/dL (1.8-2.4); Potassium 3.9 mmol/L (3.5-5.1)
[2018-06-24] MEDS ORDERED: POTASSIUM CL SA 10 MEQ TAB PO ONE (08:00)
[2018-06-24] MEDS ORDERED: MAGNESIUM SULFATE 1 gm IVPB 1 GM/100 ML BAG IV ONE (08:00)
--- NOTE | 2018-06-24 08:56 | P.DS ---
Admission Date: 06/22/18 Discharge Date: 06/24/18 Primary Care Provider: none; Oncology-MD Shannon Disposition: ROUTINE DISCHARGE Discharge Condition: GOOD Reason for Admission: UTI Consultations: Urology-Dr. Ross Procedures: CT scan: FINDINGS: No hydronephrosis is present and no obstructing ureteral calculi. No suspicious renal masses. Isodense masses and pyelonephritis are not excluded on a stone protocol CT scan. Urinary bladder is fully contracted. No bladder calculi seen. Prostate gland and seminal vesicles are within range of normal. Imaged portions of the liver, spleen and pancreas show no suspicious findings on non-contrast imaging. Liver does demonstrate fatty infiltration. No gallbladder or biliary tree abnormality identified. No significant adrenal finding. No suspicious bowel findings. No appendicitis. Transverse colon surgical site shows no acute finding. No hernia, mass or bulky lymphadenopathy noted. No free air, free fluid or inflammatory stranding. No significant bony abnormality. Disc and bony degenerative changes are present. Postsurgical changes are present in the proximal right femur. No acute bone process identified. IMPRESSION: Noncontrast CT abdomen and pelvis imaging shows no acute finding. Isodense masses and pyelonephritis are not excluded on stone protocol technique. Fatty infiltration of the liver. - Problems (1) Fatty liver Current Visit: Yes Status: Chronic (2) Elevated liver function tests Current Visit: Yes Status: Acute (3) GERD (gastroesophageal reflux disease) Onset Date: 06/23/18 Current Visit: Yes Status: Chronic Qualifiers: Esophagitis presence: esophagitis presence not specified Qualified Code(s) : K21.9 - Gastro-esophageal reflux disease without esophagitis (4) History of colon cancer, stage II Current Visit: Yes Status: Chronic (5) UTI (urinary tract infection) Onset Date: 06/23/18 Current Visit: Yes Status: Acute Qualifiers: Urinary tract infection type: acute cystitis Hematuria presence: without hematuria Qualified Code(s): N30.00 - Acute cystitis without hematuria (6) Obesity Current Visit: Yes Status: Chronic Qualifiers: Obesity type: due to excess calories Obesity classification: adult class 1 (BMI 30 - 34.9) Serious obesity comorbidity presence: without serious comorbidity Body mass index: BMI 33.0-33.9 Qualified Code(s): E66.09 - Other obesity due to excess calories; Z68.33 - Body mass index (BMI) 33.0-33.9, adult (7) Elevated PSA Current Visit: Yes Status: Acute (8) Gout Current Visit: Yes Status: Chronic Qualifiers: Gout site: unspecified site Chronicity: unspecified Brief History of Present Illness: 42-year-old male presented emergency room with urinary discomfort and fever. Patient found to have a UTI and elevated PSA. Patient was admitted for further evaluation. Hospital Course: Patient presented with urinary discomfort and fever. Patient found to have UTI. CT scan unremarkable except fatty liver. Patient evaluated by urology. No neurology go intervention required. Patient had elevated PSA. Urine culture positive for Klebsiella pneumoniae. Urology suspects UTI rather than prostatitis. Recommendation is for the patient to continue with Bactrim DS 1 pill twice daily for 7 days. UTI prevention will need to be enforced. Recommendation is for the patient to follow up with urology in 1 week to monitor resolution. Recommendation is to recheck PSA in 1 month to monitor closely. Patient has a history of fatty liver. This can be further addressed as an outpatient by GI. Lifestyle modification education will be provided. Patient with history of colon cancer with colectomy. Patient seen and evaluated by MD Bolivar. Patient to follow up as directed. Patient with history of gout. Patient will continue with allopurinol 100 mg once daily. Patient has GERD. Patient continue with Protonix 40 mg 1 pill once daily. Vital Signs/Physical Exam: Temp Pulse Resp BP Pulse Ox 97 F 70 20 117/68 100 06/24/18 04:00 06/24/18 04:00 06/24/18 04:00 06/24/18 04:00 06/24/18 04:00 General: Alert, In no apparent distress, Oriented x3, Cooperative HEENT: Atraumatic Neck: Supple Respiratory: Clear to auscultation bilaterally, Normal air movement Cardiovascular: Normal pulses, Regular rate/rhythm Gastrointestinal: Normal bowel sounds, Soft and benign, Non-distended, No tenderness, No masses, No rebound, No guarding Musculoskeletal: No erythema, No tenderness, No warmth Integumentary: No tenderness/swelling, No erythema, No warmth, No cyanosis Neurological: Normal speech, Normal strength at 5/5 x4 extr, Normal tone, Normal affect Laboratory Data at Discharge: WBC 9.0 K/uL (4.3-10.9) D 06/24/18 05:56 Hgb 13.5 g/dL (13.6-17.9) L 06/24/18 05:56 Hct 39.7 % (39.6-49.0) 06/24/18 05:56 Plt Count 197 K/uL (152-406) 06/24/18 05:56 Sodium 139 mmol/L (136-145) 06/24/18 05:56 Potassium 3.9 mmol/L (3.5-5.1) 06/24/18 05:56 BUN 6 mg/dL (7-18) L 06/24/18 05:56 Creatinine 1.00 mg/dL (0.55-1.3) 06/24/18 05:56 Glucose 95 mg/dL (74-106) 06/24/18 05:56 Magnesium 1.9 mg/dL (1.8-2.4) 06/24/18 05:56 Total Bilirubin 0.8 mg/dL (0.2-1.0) 06/22/18 22:00 AST 66 U/L (15-37) H 06/22/18 22:00 ALT 92 U/L (12-78) H 06/22/18 22:00 Alkaline Phosphatase 68 U/L (45-117) 06/22/18 22:00 Amylase 34 U/L (25-115) 06/22/18 22:00 Lipase 221 U/L (73-393) 06/22/18 22:00 Home Medications: Allopurinol [Zyloprim*] 100 mg PO DAILY 06/23/18 Aspirin 81 mg PO DAILY 06/23/18 Pantoprazole Sodium [Protonix] 40 mg PO DAILY 06/23/18 Turmeric Root Extract [Turmeric] 1,053 mg PO DAILY 06/23/18 Smz./Tmp. [Bactrim Ds 800 MG/160 MG] 1 tab PO BID #14 tab 06/24/18 New Medications: Smz./Tmp. [Bactrim Ds 800 MG/160 MG] 1 tab PO BID #14 tab Patient Discharge Instructions: 1. Patient will need a follow up with a PCP to establish care and to follow up this hospitalization. 2. Patient presented with urinary discomfort and fever. Patient found to have a UTI. CT scan unremarkable except fatty liver. Patient evaluated by urology. No Urological intervention required. Patient had elevated PSA. Urine culture positive for Klebsiella pneumoniae. Urology suspects UTI rather than prostatitis. Recommendation is for the patient to continue with Bactrim DS 1 pill twice daily for 7 days. UTI prevention will need to be enforced. Recommendation is for the patient to follow up with urology in 1-2 week to monitor resolution. Recommendation is to recheck PSA in 1 month to monitor closely. 3. Patient has a history of fatty liver. This can be further addressed as an outpatient by GI. Lifestyle modification education will be provided. 4. Patient with history of colon cancer with colectomy. Patient seen and evaluated by MD Bolivar. Patient to follow up as directed. 5. Patient with history of gout. Patient will continue with allopurinol 100 mg 1 pill daily. 6. Patient has GERD. Patient continue with Protonix 40 mg 1 pill once daily. Diet: AHA Activity: Ad wu Time spent managing pt's care (in minutes): 55
--- NOTE | 2018-06-24 08:58 | CON ---
History Of Present Illness: A pleasant gentleman who was in good state of health and he woke up a few days ago and he was not drinking lots of fluids and developed a UTI with temperature 101.8. He has never had any previous urinary problems before. Normal voids fine. He did have some dysuria, frequency and urgency. Urine culture is growing gram-negative rods currently. He is on Levaquin, so he feels better, but his white count is still elevated at 16,000. He wants to go home to get back to work but admitted to watch that white count until it comes down and also watch the culture and sensitivity for results. If his white count was normal and no fevers, he could go home on the same medication, but he is not so. Denies any unprotected intercourse. CT scan shows no abnormality. Allergies: NO KNOWN DRUG ALLERGIES. Home Medication: List reviewed. Past Medical History: __ gout, colon cancer, hemicolectomy. Family History: Noncontributory. Social History: Never smoked. Some alcohol occasionally. No drug use. Resides at home. Review of Systems: A 10-point review of systems otherwise unremarkable. Physical Examination: General: The patient appears to be in good shape. Normal body habitus. He is alert and oriented x3. HEENT: Atraumatic, normocephalic. Neck: Supple. Respiratory: Clear. Cardiovascular: S1-S2. Gastrointestinal: Normal bowel sounds. Musculoskeletal: Normal skin, no rashes. Neurologic: Normal speech. Neuro is grossly intact Lymphatics: Normal. Exam: Both testicles were descended. Phallus circumcised. No lesions. Prostate exam about 20-30 g benign-feeling prostate. No signs of acute prostatitis. Laboratory Data: White count 16.0, H and H are 12.6 and 36.7, platelet count 195. Chemistries normal. Sodium 139, potassium 3.5, chloride 107, carbon dioxide 26, BUN 6, creatinine 0.9, GFR 117, calcium 8.1. Urine test showed positive nitrite, negative esterase. Blood cultures growing gram-negative rods. Yesterday hepatitis labs are pending. Assessment: Urinary tract infection. Plan: He is currently on IV Levaquin. We will repeat white count in the morning. We took final urine culture and sent home on the correct antibiotic between 7 and 10 days. I do not think he has any clinical signs or any physical findings of acute prostatitis. His upper tract studies were normal. MODESTA/RUDY Voice ID: [id number] Report ID: [id number] MTDD
[2018-06-24 08:59] VITALS: BP 127/75; TEMP 97.7
[2018-06-24] MEDS: ENOXAPARIN 40 MG/0.4 ML SQ SCH (08:59)
[2018-06-24] MEDS ORDERED: PANTOPRAZOLE 40MG TABLET PO SCH (09:00)
[2018-06-24] MEDS ORDERED: ASPIRIN 81 MG CHEWABLE TABLET PO SCH (09:00)
[2018-06-24] MEDS ORDERED: ALLOPURINOL 100 MG TAB PO SCH (09:00)
[2018-06-25 19:38] LABS: HBsAG Nonreactive (Nonreactive); Hepatitis A IgM Antibody Nonreactive
== END 2018-06-24 10:10 | disposition home or self-care (01) ==
LOC: ER 20:58 → INTOOBSV 22:06 → ERHOLD 22:06 → 4TH 23:44
PROVIDERS: ADMIT Internal Medicine; ATTEND Internal Medicine
DX: N30.00 Acute cystitis without hematuria (principal); B96.1 Klebsiella pneumoniae [K. pneumoniae] as the cause of diseases classified elsewhere; K76.0 Fatty (change of) liver, not elsewhere classified; R79.89 Other specified abnormal findings of blood chemistry; K21.9 Gastro-esophageal reflux disease without esophagitis; E66.9 Obesity, unspecified; Z68.33 Body mass index [BMI] 33.0-33.9, adult; M1A.9XX0 Chronic gout, unspecified, without tophus (tophi); R97.20 Elevated prostate specific antigen [PSA]; Z85.038 Personal history of other malignant neoplasm of large intestine
CPT/HCPCS: 36415; 74176; 76377; 80048; 80074; 80076; 81003; 81015; 82150; 83605; 83690; 83735; 84145; 84153; 85025; 87040; 87077; 87086; 87088; 87186; 96365; 96368; 99285; G0378; J0696; J1650; J7030